=== PATIENT | female | born 1985 | race Caucasian/White ===

== ENCOUNTER 2017-03-13 07:45 | Emergency (ER) | payer BC ==
[~2017-03-13] VITALS: Ht 162.6 cm; Wt 85.5 kg
[~2017-03-13 07:45] MED LIST: ASCORBIC ACID500 MG PO; CEFDINIR300 MG PO; CIPRO500 MG PO; CLARITIN-D 21 TABLET PO; ENOXAPARIN40 MG/0.4 SC; FLUTICASONE PRO16 GM BOTH NARES; HYDROCODONE-CH473 ML PO; INDOCIN25 MG PO; ONDANSETRON HCL4 MG PO; OXYCODONE HCL5 MG PO; PANTOPRAZOLE SO40 MG PO; PERCOCET 5/31 TABLET PO; ZANTAC150 MG PO; ZITHROMAX Z-PA250 MG PO; ZOFRAN4 MG PO
[2017-03-13] MEDS ORDERED: CYMBALTA60 MG PO (07:57)
[2017-03-13] MEDS ORDERED: OSTERA TABLET1 EACH PO (07:57)
[2017-03-13 09:49] LABS: BASOPHIL COUNT 0.1 K/uL (0-0.1); EOSINOPHIL (%) 3.9 % (0-5); EOSINOPHIL COUNT 0.4 K/uL (0-0.3); HEMATOCRIT 43.8 % (36.0-46.0); IMMATURE GRANULOCYTE (%) 0.2 % (0.0-0.7); INSTRUMENT ABS NEUTROPHIL CT 6.8 K/uL; LYMPHOCYTE COUNT 2.1 K/uL (1.0-2.8); MCH 31.7 PG (29.0-34.0); MCHC 33.6 G/DL (30.0-36.0); MCV 94.4 FL (83-99); MEAN PLAT.VOLUME 9.3 uM^3 (9.5-12.4); MONOCYTE COUNT 0.7 K/uL (0-0.8); NEUTROPHIL (%) 67.1 % (45-76); NEUTROPHIL COUNT 6.8 K/uL (1.8-6.4); PLATELET COUNT 273 K/uL (156-360); RBC DIS.WIDTH-CV 11.9 % (11.8-14.6); RBC DIS.WIDTH-SD 41.2 % (39-53); RED BLOOD COUNT 4.64 M/uL (3.80-5.20); WHITE BLOOD COUNT 10.1 K/uL (4.1-10.2)
[2017-03-13 09:57] LABS: CHLORIDE 108 mEq/L (99-109); POTASSIUM 4.4 mEq/L (3.7-5.4); SODIUM 142 mEq/L (136-147)
[2017-03-13 09:58] LABS: ADD MIUA? YES; BILIRUBIN NEGATIVE; BLOOD NEGATIVE; COLOR YELLOW ((YELLOW)); GLUCOSE (STRIP) NEGATIVE; KETONES 20; LEUKOCYTES MODERATE; NITRITE NEGATIVE; PROTEIN (STRIP) NEGATIVE; SPECIFIC GRAVITY 1.011 (1.000-1.030); UROBILINOGEN 0.2 MG/DL (0.2-1.0)
[2017-03-13 09:59] LABS: GLUCOSE 88 mg/dL (70-99)
[2017-03-13 10:01] LABS: ANION GAP 10 MEQ/L (2-14); TOTAL BILIRUBIN 0.3 mg/dL (0.0-1.0)
[2017-03-13 10:02] LABS: BACTERIA RARE /HPF; EPITHELIAL CELLS RARE /HPF; MUCUS TRACE /LPF; RED BLOOD CELLS 0-5 /HPF (0-5); WHITE BLOOD CELLS 0-5 /HPF (0-5)
[2017-03-13 10:03] LABS: ALKALINE PHOSPHATASE 88 IU/L (3-129); GFR ESTIMATE (CALCULATED) > 59 mL/min/
[2017-03-13 10:04] LABS: UREA NITROGEN (BUN) 11 mg/dL (9-23)
[2017-03-13 10:06] LABS: LIPASE 32 U/L (1.0-51.0)
[2017-03-13 10:13] LABS: QUANTITATIVE HCG < 4.0 MIU/ML
[2017-03-13] MEDS ORDERED: TYLENOL WITH C1 EACH PO (13:00)
[2017-03-13 13:13] VITALS: BP 119/86
== END 2017-03-13 13:13 | disposition home or self-care (01) ==
LOC: EME 07:45
PROVIDERS: Emergency Medicine
DX: N83.201 Unspecified ovarian cyst, right side (principal); T83.32XA Displacement of intrauterine contraceptive device, initial encounter; R11.0 Nausea; R42 Dizziness and giddiness; Z98.84 Bariatric surgery status; Z90.49 Acquired absence of other specified parts of digestive tract; Z87.891 Personal history of nicotine dependence
CPT/HCPCS: 74177; 80053; 81003; 83690; 84702; 85025; 99281; 99284; J7030

== ENCOUNTER 2017-10-30 22:53 | Emergency (ER) | payer BC ==
[~2017-10-30] VITALS: Ht 162.6 cm; Wt 87.8 kg
[~2017-10-30 22:53] MED LIST changes: +CYMBALTA60 MG PO; +OSTERA TABLET1 EACH PO; +TYLENOL WITH C1 EACH PO
[2017-10-31] MEDS ORDERED: TYLENOL WITH C1 EACH PO (00:02)
[2017-10-31 01:08] VITALS: BP 126/82
== END 2017-10-31 01:10 | disposition home or self-care (01) ==
LOC: EME 22:53 → RME 22:53
DX: J06.9 Acute upper respiratory infection, unspecified (principal); Z88.0 Allergy status to penicillin; Z88.2 Allergy status to sulfonamides; Z88.1 Allergy status to other antibiotic agents; Z88.8 Allergy status to other drugs, medicaments and biological substances
CPT/HCPCS: 87651 90; 99281; 99284; J1100